=== PATIENT | female | born 1960 | race Caucasian/White ===

== ENCOUNTER 2024-08-19 15:17 | Inpatient (IN) | payer BC, MEDICARE, SELFPAY ==
[2024-08-19] VITALS (8 sets, daily range): BP systolic 104–135; BP diastolic 48–76; PULSE 82–113; RESP 15–23; TEMP 36.8–36.9; O2SAT 95–98; BMI 31.4; BMI 30.4
[2024-08-19 16:27] LABS: Absolute Lymphocyte Count 1.63 X10^3/uL (0.83-4.51); Absolute Neutrophil Count 7.9 X10^3/uL (2.0-7.7); Basophil# 0.07 X10^3/uL; Basophil% 0.6 % (0-1); Eosinophil# 0.37 X10^3/uL; Eosinophils% 3.4 % (0-5); Hematocrit 38.1 % (37-47); Hemoglobin 12.3 g/dL (12.0-15.0); Lymphocyte # 1.63 X10^3/ul (0.83-4.51); Lymphocyte % 14.9 % (19-41); Mean Corp Hgb Conc 32.3 g/dL (32-36); Mean Corpuscular Hgb 27.3 pg (27.0-32.0); Mean Corpuscular Volume 84.7 fL (81-99); Mean Platelet Vol. 8.6 fl (6.2-12.0); Monocyte# 0.81 X10^3/uL; Monocyte% 7.4 % (0-10); NRBC Flagged by Analyzer 0 % (0-5); Neutrophil # 7.91 X10^3/uL (2.7-7.7); Neutrophil % 72.2 % (47-70); Platelet Count 329 K/mm3 (150-450); RBC Distribution Width CV 12.9 % (11.6-14.6); RBC Distribution Width SD 39.8 fl (35.1-43.9)
--- NOTE | 2024-08-19 16:45 | CT_ITS ---
EXAM: CT ANGIOGRAPHY CHEST WITHOUT AND WITH INTRAVENOUS CONTRAST CLINICAL INDICATION: Pleuritic chest pain TECHNIQUE: Helically acquired angiography images were obtained of the chest without and with intravenous contrast. CTDIvol = ( 9.59 ) mGy, DLP = ( 329.57 ) mGycm This CT exam was performed using one or more of the following dose reduction techniques: automated exposure control, adjustment of the mA and/or kV according to patient size, and/or use of iterative reconstruction technique. MIP reconstructed images were created and reviewed. CONTRAST: IV 100mL Isovue-370 COMPARISON: No relevant prior studies available. FINDINGS: PULMONARY ARTERIES: Unremarkable. No evidence of pulmonary embolism. No aneurysm or dissection. No PE. AORTA: Unremarkable. Normal in caliber. No evidence of dissection. GREAT VESSELS OF AORTIC ARCH: Unremarkable. Normal in caliber. No evidence of dissection. LUNGS AND PLEURAL SPACES: Interstitial and groundglass opacities and prominent peripherally than centrally. No dense consolidation. No mass. No pleural effusion or pneumothorax. HEART: Unremarkable. Heart size is normal. No pericardial effusion. No significant coronary artery calcifications. MEDIASTINUM: Unremarkable. Esophagus is unremarkable. No hiatal hernia. No mediastinal or hilar adenopathy. THYROID: Unremarkable. No thyroid lesions. BONES/JOINTS: Degenerative changes of the spine. No suspicious lytic or blastic abnormality. CT/CTA Chest W/WO Contrast IMPRESSION: 1. Interstitial and groundglass opacities and prominent peripherally than centrally. Findings can be seen with an infectious and/or inflammatory process. 2. No PE, aortic dissection or consolidative pneumonia. Electronically Signed: William Sahu MD at 17:48 EST ,
--- NOTE | 2024-08-19 16:49 | EDS_ITS ---
HPI <ASHUTOSH Chavarria - Last Filed: 08/19/24 16:59> History of Present Illness Chief Complaint: Shortness of Breath Narrative Narrative: Patient is a 64-year-old female with history of epilepsy, anxiety, depression presents to the [facility] for a 1.5 months of worsening coughing, ongoing pneumonia. Patient has been on multiple antibiotics over the last 1.5 months. Patient has been on Omnicef, doxycycline, amoxicillin, Levaquin as well as a couple doses of prednisone. Patient had a CT scan on 14 August, it showed bilateral lower lobe and right middle lobe groundglass infiltrates. Patient was seen at [facility] and had a negative troponin, negative D-dimer. Patient did have a leukocytosis. She called her PCP today who told to go to the emergency department for IV antibiotics. [facility] <ASHUTOSH Chavarria - Last Filed: 08/19/24 16:59> [facility] Medical History (Updated 08/19/24 @ 19:[address] Audrey Colvin MD) Tonsillectomy planned Depression Epilepsy Home Medications ?Medication ?Instructions ?Recorded ?Last Taken ?Type budesonide-formoterol HFA 80 2 puff inhalation BID BREATHING 08/19/24 Unknown History mcg-4.5 mcg/actuation aerosol inhaler (Breyna) oxcarbazepine 600 mg 600 mg PO DAILY 08/19/24 Unknown History tablet,extended release 24 hr sertraline 100 mg tablet 150 mg PO DAILY 08/19/24 Unknown History trazodone 50 mg tablet 50 mg PO QHS 08/19/24 Unknown History Allergy/AdvReac Type Severity Reaction Status Date / Time oxaprozin (From Daypro) Allergy Severe Angioedema Verified 08/19/24 15:18 Sulfa (Sulfonamide Allergy Mild Rash Verified 08/19/24 15:18 Antibiotics) Surgical History (Updated 08/19/24 @ 16:13 by Aleks Maguire) History of carpal tunnel surgery H/O section Social History Smoking Status: Former smoker ROS <ASHUTOSH Chavarria - Last Filed: 08/19/24 16:59> ROS ED ROS Narrative Constitutional: Negative for weight loss. Positive fever, chills, weakness Eyes: Negative for vision loss, vision change, double vision ENT: Negative for any sore throat, ear pain, congestion Cardiovascular: Negative for any palpitations. Positive chest tightness Respiratory: Negative for any sputum production, hemoptysis, dyspnea, dyspnea on exertion, orthopnea. Positive for cough Gastrointestinal: Negative for any abdominal pain, nausea, vomiting, diarrhea, constipation, blood in stool, blood in vomit : Negative for any urinary frequency, dysuria, retention, blood in urine Muscle skeletal: Negative for any neck pain, back pain Neurological: Negative for any headache, syncope, dizziness Skin: Negative for any rashes, itching, abrasions, lacerations Psychiatric: Negative for any depression, anxiety, stress, suicidal ideation, homicidal ideation Hematologic: Negative for any excessive bruising, easy bleeding EXAM <ASHUTOSH Chavarria - Last Filed: 08/19/24 16:59> Physical Exam Narrative Exam Narrative: Vital signs reviewed. Patient appears to be in no obvious distress HEET: Head normocephalic atraumatic, TMs clear bilaterally. Posterior pharynx is clear, moist mucous membranes. Nares clear bilaterally. Neck: Supple with no lymphadenopathy or tenderness. No signs of meningismus. Cardiac: Regular rate and rhythm no murmurs gallops or rubs, equal peripheral pulses bilaterally. Respiratory: Crackles bilateral lower lungs. No chest tenderness. Abdomen: Soft, nontender, nondistended. No abdominal bruit or pulsatile masses. No hepatosplenomegaly Extremities: No peripheral edema, no signs of gross trauma or deformity. Active full range of motion of all extremities. Neuro: Cranial nerves II through XII intact, no focal neurological deficits. Skin: Clean dry and intact with no rash, purpura, petechiae, vesicles or pustules. Backs/flank: No CVA tenderness, no midline spinal tenderness, no deformity. Psych: Normal mood and affect. No SI, HI or acute psychosis. Const Vital Signs: 08/19/24 15:18 08/19/24 15:20 08/19/24 16:09 Temperature 98.3 F 98.3 F Temperature Source Oral Oral Pulse Rate 113 H 113 H Respiratory Rate 22 H 22 H Respiratory Effort Respiratory Depth Blood Pressure 135/76 H 135/76 H Blood Pressure Mean 95 95 Pulse Ox 96 96 Oxygen Delivery Method Room Air Room Air Room Air 08/19/24 16:12 08/19/24 16:38 08/19/24 17:17 Temperature 98.3 F Temperature Source Temporal Pulse Rate 91 98 Respiratory Rate 15 23 H Respiratory Effort Short of Breath Respiratory Depth Shallow Blood Pressure 115/68 108/65 Blood Pressure Mean 83 79 Pulse Ox 97 95 Oxygen Delivery Method Room Air 08/19/24 18:49 Temperature 98.3 F Temperature Source Pulse Rate 98 Respiratory Rate 23 H Respiratory Effort Respiratory Depth Blood Pressure 108/65 Blood Pressure Mean 79 Pulse Ox 95 Oxygen Delivery Method Positive well nourished and well developed General Appearance ED: well developed <Dr. Omero Villela DO - Last Filed: 08/19/24 20:49> Physical Exam Const Vital Signs: 08/19/24 15:18 08/19/24 15:20 08/19/24 16:09 Temperature 98.3 F 98.3 F Temperature Source Oral Oral Pulse Rate 113 H 113 H Respiratory Rate 22 H 22 H Respiratory Effort Respiratory Depth Blood Pressure 135/76 H 135/76 H Blood Pressure Mean 95 95 Pulse Ox 96 96 Oxygen Delivery Method Room Air Room Air Room Air 08/19/24 16:12 08/19/24 16:38 08/19/24 17:17 Temperature 98.3 F Temperature Source Temporal Pulse Rate 91 98 Respiratory Rate 15 23 H Respiratory Effort Short of Breath Respiratory Depth Shallow Blood Pressure 115/68 108/65 Blood Pressure Mean 83 79 Pulse Ox 97 95 Oxygen Delivery Method Room Air 08/19/24 18:49 Temperature 98.3 F Temperature Source Pulse Rate 98 Respiratory Rate 23 H Respiratory Effort Respiratory Depth Blood Pressure 108/65 Blood Pressure Mean 79 Pulse Ox 95 Oxygen Delivery Method MDM <ASHUTOSH Chavarria - Last Filed: 08/19/24 16:59> [facility] Lab Data Labs: Laboratory Results - last 24 hr 08/19/24 16:03 WBC 11.0 RBC 4.50 Hgb 12.3 Hct 38.1 MCV 84.7 MCH 27.3 MCHC 32.3 RDW Std Deviation 39.8 RDW Coeff of Leann 12.9 Plt Count 329 MPV 8.6 Immature Gran % (Auto) 1.500 H Neut % (Auto) 72.2 H Lymph % (Auto) 14.9 L [place] % (Auto) 7.4 Eos % (Auto) 3.4 Baso % (Auto) 0.6 Absolute Neuts (auto) 7.9 H Absolute Lymphs (auto) 1.63 Nucleated RBC % 0 Sodium 134 L Potassium 3.9 Chloride 103 Carbon Dioxide 27.0 Anion Gap 4 L BUN 12 Creatinine 0.68 Estim Creat Clear Calc 67.76 Est GFR (MDRD) Af Amer 112 Est GFR (MDRD) Non-Af 92 BUN/Creatinine Ratio 17.7 Glucose 104 Calcium 9.8 Troponin I High Sens < 3 L Radiography Diagnostic Testing: Clinical Impression(s) from Imaging Studies Chest CTA 08/19/24 16:45 IMPRESSION: 1. Interstitial and groundglass opacities and prominent peripherally than centrally. Findings can be seen with an infectious and/or inflammatory process. 2. No PE, aortic dissection or consolidative pneumonia. Electronically Signed: William Sahu MD at 17:48 EST , Treatment and Re-Evaluation :: Differential diagnosis includes however is not limited to: Community-acquired pneumonia, lung cancer, COVID-19, influenza, other virus, PE, pulmonary effusion Patient appears generally well, vital signs are stable, patient is nontoxic- appearing. Presenting to the emergency department with complaints of ongoing cough, known bilateral pneumonia. Patient is been on multiple antibiotics, and is not improving. Patient had a negative D-dimer, CT scan of chest. Patient at this time will receive a CTA of the chest, as well as a full respiratory panel. Blood cultures x 2 will be ordered. Patient will likely be admitted to the hospital. Patient will receive IV vancomycin, IV Zosyn. All radiologic examinations were read, reviewed by the emergency department attending. From these reads, a plan of care will be put in place. <Dr. Omero Villela, DO - Last Filed: 08/19/24 20:49> [facility] Lab Data Labs: Laboratory Results - last 24 hr 08/19/24 16:03 WBC 11.0 RBC 4.50 Hgb 12.3 Hct 38.1 MCV 84.7 MCH 27.3 MCHC 32.3 RDW Std Deviation 39.8 RDW Coeff of Leann 12.9 Plt Count 329 MPV 8.6 Immature Gran % (Auto) 1.500 H Neut % (Auto) 72.2 H Lymph % (Auto) 14.9 L [place] % (Auto) 7.4 Eos % (Auto) 3.4 Baso % (Auto) 0.6 Absolute Neuts (auto) 7.9 H Absolute Lymphs (auto) 1.63 Nucleated RBC % 0 Sodium 134 L Potassium 3.9 Chloride 103 Carbon Dioxide 27.0 Anion Gap 4 L BUN 12 Creatinine 0.68 Estim Creat Clear Calc 67.76 Est GFR (MDRD) Af Amer 112 Est GFR (MDRD) Non-Af 92 BUN/Creatinine Ratio 17.7 Glucose 104 Calcium 9.8 Troponin I High Sens < 3 L Radiography Diagnostic Testing: Clinical Impression(s) from Imaging Studies Chest CTA 08/19/24 16:45 IMPRESSION: 1. Interstitial and groundglass opacities and prominent peripherally than centrally. Findings can be seen with an infectious and/or inflammatory process. 2. No PE, aortic dissection or consolidative pneumonia. Electronically Signed: William Sahu MD at 17:48 EST Reading Location ID and State: [address] [place] [address] Tel , Service support , Treatment and Re-Evaluation :: Differential diagnosis includes however is not limited to: Community-acquired pneumonia, lung cancer, COVID-19, influenza, other virus, PE, pulmonary effusion Patient appears generally well, vital signs are stable, patient is nontoxic- appearing. Presenting to the emergency department with complaints of ongoing cough, known bilateral pneumonia. Patient is been on multiple antibiotics, and is not improving. Patient had a negative D-dimer, CT scan of chest. Patient at this time will receive a CTA of the chest, as well as a full respiratory panel. Blood cultures x 2 will be ordered. Patient will likely be admitted to the hospital. Patient will receive IV vancomycin, IV Zosyn. All radiologic examinations were read, reviewed by the emergency department attending. From these reads, a plan of care will be put in place. ED attending note: I evaluated the patient in conjunction with the [facility]. I agree with his/her statements and above findings. I have personally performed a face to face assessment of the patient and have reviewed the [facility] Note. I performed a substantive portion of the visit including all aspects of the following. I personally saw the patient performed chart review, physical exam, reviewed labs, imaging (if obtained), and formulated a treatment and management plan. This note was generated with Dragon dictation software. It may contain incorrect words, spelling, and punctuation that were not noted in review of the chart prior to signing. Discharge Plan Disposition Disposition: Acute Care Hospital [facility] Discharge Date/Time: 08/19/24 19:35
[2024-08-19 16:53] LABS: Anion Gap 4 (5-15); BUN 12 mg/dL (7-18); BUN/Creat Ratio 17.7 RATIO (10-20); Calcium,Total 9.8 mg/dL (8.5-10.1); Chloride 103 mmol/L (98-107); Creatinine, Serum 0.68 mg/dL (0.55-1.02); EST Glomerular Filtration Rate 92 mL/min (>60); Est Glom Filt Rate - Afr Amer 112 mL/min (>60); Estimated Creatinine Clearance 67.76 ml/min; Glucose 104 mg/dL (74-106); Potassium 3.9 mmol/L (3.5-5.1); Sodium Level 134 mmol/L (136-145); Troponin-I HS < 3 pg/mL (3.0-54.0)
[2024-08-19] MEDS: Piperacil/Tazobactam 3.375 GM in 0.9% Normal Saline (50mL MB+) 50 ML IV (17:03)
[2024-08-19] MEDS: Vancomycin HCl 1,250 MG in 0.9% Normal Saline (250mL Bag) 250 ML 167 MG IV (17:21)
--- NOTE | 2024-08-19 18:56 | PCM.HP.STD ---
HPI - General General Date of Admission: 08/19/24 Date of Service: 08/19/24 Chief Complaint: SOB HPI Narrative KIANA REEVES, is a 64-year-old female history of epilepsy and anxiety presented [facility] ED 08/19/2024 with a month and a half of worsening cough with shortness of breath and multiple rounds of antibiotics for pneumonia. She has been on Omnicef, Doxy, amoxicillin, Levaquin and has also received prednisone with no improvement. Patient had CT scan August 14 and it showed bilateral lower lobe and right middle lobe groundglass infiltrates. She was seen at [facility] with negative troponin and negative D-dimer and discharged. She called her PCP today who told her to go to the emergency department for IV antibiotics. In the ED patient vitally stable with white blood cell count within normal limits at 11 and slight left shift, CBC and BMP otherwise fairly noncontributory. Patient had CTA which showed no PE but redemonstrated interstitial and groundglass opacities more prominent peripherally than centrally. Patient given vancomycin and Zosyn and hospitalist contacted to admit patient for IV antibiotics for refractory pneumonia. Patient evaluated with family member at bedside. Patient reports about a month and a half ago she did start with a cough with thick yellow sputum and shortness of breath, cough resolved after 4 days and the shortness of breath continued to worsen and has since plateaued but has not proved at all. She is also had some aching left-sided chest pain that comes and goes and has also been present for a month and a half. She has been on Omnicef, Doxy, Augmentin, Levaquin and prednisone and reports she has had no improvement with any of these courses of antibiotics or steroids whatsoever and albuterol has not been helpful either. Her max temperature has been 100.1 during this past month and a half. Just this past day she has been coughing a little bit again with a little bit of a stuffy nose and headache but between the original 4 days and now she has had no significant productive cough. Patient denies any new medications or [id number] medicines or supplements and quit smoking last summer and denies smoking any marijuana or anything similar. Additionally patient reports that when she gets up and moves around she has significant shortness of breath that limits her daily activities and also gets tachycardic, sometimes will get tachycardic even at night as noted by the monitor that she wears, usually low 100s sometimes up to 130 or so. [facility] Medical History (Updated 08/19/24 @ 19:[address] Audrey Colvin MD) Depression Epilepsy Tonsillectomy planned Home Medications ?Medication ?Instructions ?Recorded ?Last Taken ?Type albuterol sulfate 2.5 mg/3 mL 1 08/19/24 Unknown History (0.083 %) solution for nebulization budesonide-formoterol HFA 80 2 puff inhalation Q12.TCU 08/19/24 Unknown History mcg-4.5 mcg/actuation aerosol inhaler (Breyna) oxcarbazepine 600 mg 600 mg PO DAILY 08/19/24 Unknown History tablet,extended release 24 hr sertraline 100 mg tablet 150 mg PO DAILY 08/19/24 Unknown History trazodone 50 mg tablet 50 mg PO QHS 08/19/24 Unknown History Allergy/AdvReac Type Severity Reaction Status Date / Time oxaprozin (From Daypro) Allergy Severe Angioedema Verified 08/19/24 15:18 Sulfa (Sulfonamide Allergy Mild Rash Verified 08/19/24 15:18 Antibiotics) Surgical History (Updated 08/19/24 @ 16:13 by Aleks Maguire) H/O section History of carpal tunnel surgery Social History Smoking Status: Former smoker ROS ROS Narrative General: Max temperature 100.1 but no overt fevers HENT: Little bit of a stuffy nose that just started, intermittently will get some headaches EYES: Denies changes in vision Resp: Has slight cough again now and continues to have the significant shortness of breath Cardiac: Has left-sided chest aching that comes and goes GI: Feels little bit bloated and gassy, denies changes in bowel, denies nausea/vomiting : Denies changes in urination Extremity: Denies swelling MSK: Denies weakness Neuro: Denies any numbness/tingling Heme: Denies any bleeding or bruising Skin: Denies rashes Psychiatric: No complaints voiced Vital Signs Vital Signs Vital Signs: 08/19/24 15:18 08/19/24 15:20 08/19/24 16:09 Temperature 98.3 F 98.3 F Temperature Source Oral Oral Pulse Rate 113 H 113 H Respiratory Rate 22 H 22 H Respiratory Effort Respiratory Depth Blood Pressure 135/76 H 135/76 H Blood Pressure Mean 95 95 Pulse Ox 96 96 Oxygen Delivery Method Room Air Room Air Room Air 08/19/24 16:12 08/19/24 16:38 08/19/24 17:17 Temperature 98.3 F Temperature Source Temporal Pulse Rate 91 98 Respiratory Rate 15 23 H Respiratory Effort Short of Breath Respiratory Depth Shallow Blood Pressure 115/68 108/65 Blood Pressure Mean 83 79 Pulse Ox 97 95 Oxygen Delivery Method Room Air 08/19/24 18:49 Temperature 98.3 F Temperature Source Pulse Rate 98 Respiratory Rate 23 H Respiratory Effort Respiratory Depth Blood Pressure 108/65 Blood Pressure Mean 79 Pulse Ox 95 Oxygen Delivery Method Weight Weight: 77.9 kg Body Mass Index (BMI) 31.4 Physical Exam Narrative General: Alert, oriented, no apparent distress HEENT: Atraumatic, normocephalic Eyes: Anicteric, normal conjunctiva, extraocular movements grossly intact Neck: Supple Respiratory: Normal respiratory effort while at rest, does have fine crackles diffusely Cardiovascular: Regular rate and rhythm GI: Soft, nontender, nondistended Extremities: No edema Musculoskeletal: Moving all extremities Neuro: No overt focal neurological deficits Skin: No rashes appreciated Psych: Cooperative Results Lab / Micro Data 08/19/24 16:03 08/19/24 16:03 Labs: Laboratory Results - last 24 hr 08/19/24 16:03: WBC 11.0, RBC 4.50, Hgb 12.3, Hct 38.1, MCV 84.7, MCH 27.3, MCHC 32.3, RDW Std Deviation 39.8, RDW Coeff of Leann 12.9, Plt Count 329, MPV 8.6, Immature Gran % (Auto) 1.500 H, Neut % (Auto) 72.2 H, Lymph % (Auto) 14.9 L, Fisher % (Auto) 7.4, Eos % (Auto) 3.4, Baso % (Auto) 0.6, Absolute Neuts (auto) 7.9 H, Absolute Lymphs (auto) 1.63, Nucleated RBC % 0, Sodium 134 L, Potassium 3.9, Chloride 103, Carbon Dioxide 27.0, Anion Gap 4 L, BUN 12, Creatinine 0.68, Estim Creat Clear Calc 67.76, Est GFR (MDRD) Af Amer 112, Est GFR (MDRD) Non-Af 92, BUN/Creatinine Ratio 17.7, Glucose 104, Calcium 9.8, Troponin I High Sens < 3 L Imaging Radiology Impression Chest CTA 08/19/24 16:45 IMPRESSION: 1. Interstitial and groundglass opacities and prominent peripherally than centrally. Findings can be seen with an infectious and/or inflammatory process. 2. No PE, aortic dissection or consolidative pneumonia. Electronically Signed: William Sahu MD at 17:48 EST , Assessment & Plan Assessment/Plan (1) Shortness of breath: PLAN: Plan # Shortness of breath and bilateral peripheral groundglass opacities -Patient CT negative for PE but demonstrated interstitial and groundglass opacities more prominent peripherally than centrally and query an infectious or inflammatory -Patient has not improved with any oral antibiotic course she has tried thus far and she has had multiple antibiotic trials or oral prednisone taper -Unclear if patient failing oral antibiotics and needs IV or if this is noninfectious -Respiratory panel pending -Order sputum culture in the event patient able to produce sputum -Will check Pro-Baljeet, ESR, CRP -Consult tele pulmonology -DuoNebs and as needed albuterol -Urine antigens -Mucinex, I/S -Will cover with Rocephin and azithromycin, do not think patient has risk factors for Pseudomonas or MRSA and given she is afebrile, not hypoxic and has no elevated white blood cell count at this time do not think she needs that additional coverage but can be escalated or de-escalated pending labs/progress/clinical judgment moving forward -If pt still here Thursday may benefit from ID consult if cause still unclear #Seizure disorder -Presently maintained on Trileptal -Continue home regimen #Depression/anxiety -Continue home medications #DVT ppx: Lovenox subcu Audrey Colvin MD Time spent in the patient's overall evaluation, decision-making process, review of diagnostic data, adjustment of management, discussion with other providers, nursing and ancillary staff involved in patient's care documentation, 63 Minutes Charges/Coding Visit Charges Inpatient E&M: 13951 Init Hosp L2
[2024-08-19 20:09] LABS: Erythrocyte Sedimentation Rate 46 mm/hr (0-30)
[2024-08-19] MEDS: Ipratropium/Albuterol Sulfate 3 ML AMPUL.NEB INHALATION (20:37)
[2024-08-19 21:00] LABS: Procalcitonin 0.08 ng/mL (0.00-0.09)
[2024-08-19] MEDS: Ceftriaxone 2 GM in 0.9% Normal Saline (50mL MB+) 50 ML IV (21:05)
[2024-08-19] MEDS: guaiFENesin 1,200 MG Tablet 1200 MG PO (21:46)
[2024-08-19] MEDS: Azithromycin 500 MG in 0.9% Normal Saline (250mL Bag) 250 ML 255 MG IV (21:46)
[2024-08-19] MEDS: Sertraline 50 MG Tablet 150 MG PO (21:46)
[2024-08-19] MEDS: traZODone 50 MG Tablet PO (21:47)
--- NOTE | 2024-08-19 23:55 | PCM.HOSP.N ---
Hospitalist Note Procalcitonin returned normal. COVID +. Unfortunately patient with likely potential long-haul COVID symptoms. Will d/c abx therapies. CTPA without PEs.
[2024-08-20] VITALS (12 sets, daily range): BP systolic 97–118; BP diastolic 44–60; PULSE 81–119; RESP 14–24; TEMP 36.8–37.7; O2SAT 87–97
[2024-08-20] MEDS: Acetaminophen 325 MG Tablet 650 MG PO ×3 (06:27→20:40)
[2024-08-20 07:15] LABS: Basophil# 0.05 X10^3/uL; Basophil% 0.6 % (0-1); Eosinophil# 0.44 X10^3/uL; Eosinophils% 4.9 % (0-5); Hematocrit 33.8 % (37-47); Hemoglobin 11.1 g/dL (12.0-15.0); Lymphocyte % 16.9 % (19-41); Mean Corp Hgb Conc 32.8 g/dL (32-36); Mean Corpuscular Hgb 27.6 pg (27.0-32.0); Mean Corpuscular Volume 84.1 fL (81-99); Mean Platelet Vol. 8.5 fl (6.2-12.0); Monocyte# 0.84 X10^3/uL; Monocyte% 9.4 % (0-10); NRBC Flagged by Analyzer 0 % (0-5); Neutrophil # 5.95 X10^3/uL (2.7-7.7); Neutrophil % 66.9 % (47-70); Platelet Count 289 K/mm3 (150-450); RBC Distribution Width CV 12.9 % (11.6-14.6); RBC Distribution Width SD 39.6 fl (35.1-43.9); Red Blood Count 4.02 M/mm3 (4.2-5.4); White Blood Count 8.9 K/mm3 (4.4-11.0)
[2024-08-20] MEDS: Ipratropium/Albuterol Sulfate 3 ML AMPUL.NEB INHALATION ×3 (07:38→19:32)
[2024-08-20] MEDS: Enoxaparin 40 MG/0.4 ML Syringe SC (09:04)
[2024-08-20] MEDS: guaiFENesin 1,200 MG Tablet 1200 MG PO ×2 (09:04→20:40)
[2024-08-20 09:48] LABS: Anion Gap 5 (5-15); BUN 9 mg/dL (7-18); Calcium,Total 9.2 mg/dL (8.5-10.1); Chloride 108 mmol/L (98-107); Creatinine, Serum 0.64 mg/dL (0.55-1.02); EST Glomerular Filtration Rate 98 mL/min (>60); Est Glom Filt Rate - Afr Amer 119 mL/min (>60); Estimated Creatinine Clearance 66.69 ml/min; Glucose 91 mg/dL (74-106); Sodium Level 138 mmol/L (136-145)
--- NOTE | 2024-08-20 12:56 | PN_ITS ---
Subjective Subjective Patient seen and examined. She complains of feeling short of breath though she is on room air. She is coughing but it is a dry cough. She denies any chest pain, palpitations, dizziness, nausea vomiting or any other symptoms. Review of systems otherwise negative. She did test positive for COVID. Objective Data Objective Data Vital Signs: Vital Signs Temp Pulse Resp BP Pulse Ox O2 Del Method 98.2 F 97 18 99/44 L 95 Room Air 08/20/24 09:00 08/20/24 09:00 08/20/24 09:00 08/20/24 09:00 08/20/24 09:00 08/20/24 09:05 Oxygen Delivery Method Room Air Weight: 166 lb 7.184 oz Body Mass Index (BMI) 30.4 Intake & Output: Intake and Output for Last 24 Hours 08/18/24 08/19/24 08/20/24 23:59 23:59 23:59 Intake Total 630 / 630 Balance 630 / 630 Lab / Micro Data 08/20/24 07:05 08/20/24 07:05 Labs: Laboratory Results - last 24 hr 08/19/24 16:03: WBC 11.0, RBC 4.50, Hgb 12.3, Hct 38.1, MCV 84.7, MCH 27.3, MCHC 32.3, RDW Std Deviation 39.8, RDW Coeff of Leann 12.9, Plt Count 329, MPV 8.6, I mmature Gran % (Auto) 1.500 H, Neut % (Auto) 72.2 H, Lymph % (Auto) 14.9 L, [place] % (Auto) 7.4, Eos % (Auto) 3.4, Baso % (Auto) 0.6, Absolute Neuts (auto) 7.9 H, Absolute Lymphs (auto) 1.63, Nucleated RBC % 0, Sodium 134 L, Potassium 3.9, Chloride 103, Carbon Dioxide 27.0, Anion Gap 4 L, BUN 12, Creatinine 0.68, Estim Creat Clear Calc 67.76, Est GFR (MDRD) Af Amer 112, Est GFR (MDRD) Non-Af 92, BUN/Creatinine Ratio 17.7, Glucose 104, Calcium 9.8, Troponin I High Sens < 3 L 08/19/24 19:33: ESR 46 H 08/19/24 20:24: C-React Prot Ext Range 65.10 H, Procalcitonin 0.08 08/20/24 07:05: WBC 8.9, RBC 4.02 L, Hgb 11.1 L, Hct 33.8 L, MCV 84.1, MCH 27.6, MCHC 32.8, RDW Std Deviation 39.6, RDW Coeff of Leann 12.9, Plt Count 289, MPV 8.5, Immature Gran % (Auto) 1.300 H, Neut % (Auto) 66.9, Lymph % (Auto) 16.9 L, [place] % (Auto) 9.4, Eos % (Auto) 4.9, Baso % (Auto) 0.6, Absolute Neuts (auto) 6.0, Absolute Lymphs (auto) 1.50, Nucleated RBC % 0, Sodium 138, Potassium 4.0, Chloride 108 H, Carbon Dioxide 24.0, Anion Gap 5, BUN 9, Creatinine 0.64, Estim Creat Clear Calc 66.69, Est GFR (MDRD) Af Amer 119, Est GFR (MDRD) Non-Af 98, BUN/Creatinine Ratio 14.0, Glucose 91, Calcium 9.2, TSH 1.540 Micro: Microbiology 08/19/24 20:30 Mucosa - Nasopharyngeal Coronavirus COVID-19 PCR - Final SARS-CoV-2 (COVID 19 PCR) 08/19/24 20:48 Urine, Random Legionella Antigen - Final 08/19/24 20:48 Urine, Random Streptococcus pneumoniae Antigen (M - Final 08/19/24 15:34 Mucosa - Nose Respiratory Panel (PCR) - Final Radiography Diagnostic Testing: Radiology Impression Chest CTA 08/19/24 16:45 IMPRESSION: 1. Interstitial and groundglass opacities and prominent peripherally than centrally. Findings can be seen with an infectious and/or inflammatory process. 2. No PE, aortic dissection or consolidative pneumonia. Electronically Signed: William Sahu MD at 17:48 EST , Physical Exam Const alert, oriented x3, no apparent distress and well nourished General Appearance: cooperative and well developed HEENT normocephalic, head/scalp atraumatic, moist oral mucous membranes, oropharynx normal and gingiva normal Eyes PERRL and EOMs intact bilaterally Neck no lymphadenopathy and supple Lymph Lymphatic: no lymphadenopathy noted and no lymphedema noted Resp Resp Narrative: mildly diminished breath sounds bilaterally, mild crackles bilaterally, no wheezing. On room air. Cardio regular rate, regular rhythm, S1 normal heart sound, S2 normal heart sound and no murmurs GI normal to inspection, nondistended, normoactive bowel sounds, soft to palpation, non-tender and non-distended Extremity normal capillary refill, no clubbing, cyanosis or edema and no calf tenderness General Extremity: no tenderness to palpation of joints or extremities Skin General Skin Exam: no breakdown Neuro CN's II-XII intact bilaterally, no focal motor deficits and no sensory deficits noted Motor Exam: strength 5/5 throughout and general weakness Psych thought process normal and cooperative Appearance: appropriate Assessment & Plan Assessment/Plan (1) Shortness of breath: (2) COVID: PLAN: Plan #COVID 19 infection * Patient admitted with a complaint of shortness of breath. * She has been treated with pneumonia since around [place] and says she has had multiple oral antibiotics including Levaquin, Omnicef, doxycycline and amoxicillin and also received prednisone but has not improved. * She went back on account of shortness of breath. CTA of the chest showed no evidence of PE but showed interstitial and groundglass opacities more prominent peripherally and centrally. * When she came in she also tested positive for COVID. She says when her symptoms started June she was tested for COVID but was negative. * Pulmonology consulted. She was started on IV ceftriaxone and azithromycin. Antibiotics were discontinued after the COVID test came back positive. * Await pulmonology review. WBC not elevated. * #Seizure disorder: on trileptal #Depression and anxiety: on sertraline and oxcarbazepine. DVT prophylaxis; lovenox Charges/Coding Visit Charges Inpatient E&M: 63171 Subs Hosp L2
--- NOTE | 2024-08-20 14:32 | CASEMGMT ---
RN RENNY PLANT SUPERVISOR RENNY?spoke w/pt for initial transition planning/care coordination assessment. RN RENNY?introduced self and role at [facility]. Pt voices understanding and consents to assessment?at this time. Pt is A/O at this time and answers all questions appropriately. Care providers, pharmacy, and demographics verified/updated at this time. PCP: DENNY Torres Specialists: DENNY Plascencia w/[facility]. Pt sees her @ [facility]. [facility]erred Pharmacy: [facility] Insurance: JUAN MIGUEL [employer]kins Prescription Benefit: yes LNOK: , Justice. Dtr, Morenita. Son Living Arrangements: Lives w/. Independent. Works full-time. Transportation:?Pt states drives self and states no transportation concerns at this time. also drives. DME: States has the following DME: nebulizer and pulse ox. No home O2. Pt has no preference of DME co, made aware [facility] is affiliated w/[facility], and states okay with [facility]. HHC/SNF: No hx of either. Has done OP therapy for her hand. No needs identified. Pt wishes to return home and states has no concerns with going home at time of discharge. PLAN: Home. Follow for any home O2 needs. Gaurang VELA RN, CM
--- NOTE | 2024-08-20 14:46 | PCMCONS.TICU ---
HPI Consult Data Date of Consult: 08/20/24 HPI Narrative HPI Narrative: KIANA REEVES, is a 64 F has a history of seizure disorder and depression who presents to the hospital on with a 6 week history of worsening cough with shortness of breath and multiple rounds of antibiotics for pneumonia. She has been on Omnicef, Doxy, amoxicillin, Levaquin and has also received prednisone with no improvement. Patient had CT scan August 14 and it showed bilateral lower lobe and right middle lobe groundglass infiltrates. Patient had CTA which showed no PE but redemonstrated interstitial and groundglass opacities more prominent peripherally than centrally. Patient reports that she has had different exposure which may have caused her issues. 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 She states she does not wear a mask. 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 She states she uses lysol . chlorox whips and toliet bowel wool cleaner [facility] Medical History (Updated 08/20/24 @ 13:[address] Taylor Atkins MD) Tonsillectomy planned Depression Epilepsy Home Medications ?Medication ?Instructions ?Recorded ?Last Taken ?Type budesonide-formoterol HFA 80 2 puff inhalation BID BREATHING 08/19/24 Unknown History mcg-4.5 mcg/actuation aerosol inhaler (Breyna) oxcarbazepine 600 mg 600 mg PO 1800 EPILEPSY 08/19/24 Unknown History tablet,extended release 24 hr sertraline 100 mg tablet 150 mg PO QHS DEPRESSION 08/19/24 Unknown History trazodone 50 mg tablet 50 mg PO QHS 08/19/24 Unknown History Allergy/AdvReac Type Severity Reaction Status Date / Time oxaprozin (From Daypro) Allergy Severe Angioedema Verified 08/19/24 15:18 Sulfa (Sulfonamide Allergy Mild Rash Verified 08/19/24 15:18 Antibiotics) Surgical History (Updated 08/19/24 @ 16:13 by Aleks Maguire) History of carpal tunnel surgery H/O section Social History Smoking Status: Former smoker ROS Constitutional Constitutional: Reports systems reviewed and no addt'l complaints, except as documented Objective Data Objective Data Vital Signs: Vital Signs Last response Temperature 36.8 C 08/20/24 14:42 Temperature Source Oral 08/20/24 14:42 Pulse Rate 96 08/20/24 14:42 Respiratory Rate 20 H 08/20/24 14:42 Respiratory Effort Non-Labored 08/20/24 09:05 Respiratory Depth Shallow 08/19/24 16:12 Respiratory Pattern Normal 08/20/24 13:46 Blood Pressure 118/45 L 08/20/24 14:42 Blood Pressure Mean 69 08/20/24 14:42 Blood Pressure Source Monitor 08/20/24 14:42 Blood Pressure Position Semi-Fowlers 08/20/24 14:42 Blood Pressure Location Left Arm 08/20/24 14:42 Pulse Ox 96 08/20/24 14:42 Oxygen Delivery Method Room Air 08/20/24 14:42 I&O: I&O Last 24 Hours 08/19/24 08/20/24 08/20/24 23:59 11:59 23:59 Intake Total 630 / 630 Balance 630 / 630 I&O: Total Stay 08/19/24 15:17 thru 08/19/24 22:50 Intake Total 630 Balance 630 Current Meds Ordered / Administered: Current meds ordered / Administered Generic Name Dose Route Start Last Admin Trade Name Freq PRN Reason Stop Dose Admin Acetaminophen 650 mg 08/19/24 19:45 08/20/24 12:35 Acetaminophen 325 Mg Tablet PO 650 mg Q6H PRN PRN Administration Pain 1-10 Or Fever >100.7 Albuterol Sulfate 2.5 mg 08/19/24 19:45 Albuterol 2.5 Mg/3 Ml Vial.Neb. INHALATION Q2H PRN PRN SOB &/OR WHEEZING Albuterol/Ipratropium 3 ml 08/19/24 19:45 08/20/24 13:25 Ipratropium/Albuterol Sulfate 3 Ml Ampul.Neb INHALATION 3 ml Q6HWA.RT CRIS Administration Enoxaparin Sodium 40 mg 08/20/24 10:00 08/20/24 09:04 Enoxaparin 40 Mg/0.4 Ml Syringe SC 40 mg DAILY CRIS Administration Guaifenesin 1,200 mg 08/19/24 22:00 08/20/24 09:04 Guaifenesin 1,200 Mg Tablet PO 1,200 mg BID CRIS Administration Sodium Chloride 100 mls @ 15 mls/hr 08/19/24 20:01 IV .Q6H40M PRN Saline Flush Influenza Virus Vaccine 180 mcg 08/21/24 10:00 Flu Vaccine High Dose Tv 180 Mcg/0.5 Ml Syringe IM 08/21/24 10:01 .ONCE ONE Melatonin 3 mg 08/19/24 19:45 Melatonin 3 Mg Tablet PO QHS PRN PRN INSOMNIA Ondansetron HCl 4 mg 08/19/24 19:45 Ondansetron 4 Mg/2 Ml Vial IV Q8H PRN PRN NAUSEA/VOMITING Oxcarbazepine 600 mg 08/20/24 18:00 Oxcarbazepine 600 Mg Tab.Er.24h PO 1800 CRIS Oxycodone HCl 2.5 mg 08/19/24 19:45 Oxycodone 5 Mg Tablet PO Q4H PRN PRN Pain Score 4-10 Senna/Docusate Sodium 2 tablet 08/19/24 19:45 Senna/Docusate Sodium 1 Tablet PO BID PRN PRN Constipation Sertraline HCl 150 mg 08/19/24 22:00 08/19/24 21:46 Sertraline 50 Mg Tablet PO 150 mg QHS CRIS Administration Sodium Chloride 10 - 40 ml 08/19/24 20:01 0.9% Saline Lock 10 Ml Syringe IV UD PRN SALINE FLUSH Trazodone HCl 50 mg 08/19/24 22:00 08/19/24 21:47 Trazodone 50 Mg Tablet PO 50 mg QHS CRIS Administration Physical Exam Const alert and oriented x3 General Appearance: cooperative and comfortable Orientation / Consciousness: awake and oriented to person Exam Limitations: no limitations HEENT normocephalic and head/scalp atraumatic Head and Scalp: normal to inspection and normocephalic Face and Sinus: normal facial exam and sinuses nontender Nose: external nose normal and nares normal Tympanic Membrane: TM's normal bilaterally and TM normal on the right Mouth: oral and palatal mucosa normal and lips normal Teeth and Gingiva: abnormal tooth and associated gingiva Eyes Pupil: PERRL Neck full ROM Chest inspection of chest normal Resp Auscultation: diminished lung sounds Cardio regular rate and regular rhythm Heart Sounds: S1 normal and S2 normal Neuro oriented x3, CN's II-XII intact bilaterally and moves all extremities Lab / Micro Data 08/20/24 07:05 08/20/24 07:05 Labs: Laboratory Results - last 24 hr 08/19/24 16:03: WBC 11.0, RBC 4.50, Hgb 12.3, Hct 38.1, MCV 84.7, MCH 27.3, MCHC 32.3, RDW Std Deviation 39.8, RDW Coeff of Leann 12.9, Plt Count 329, MPV 8.6, Immature Gran % (Auto) 1.500 H, Neut % (Auto) 72.2 H, Lymph % (Auto) 14.9 L, [place] % (Auto) 7.4, Eos % (Auto) 3.4, Baso % (Auto) 0.6, Absolute Neuts (auto) 7.9 H, Absolute Lymphs (auto) 1.63, Nucleated RBC % 0, Sodium 134 L, Potassium 3.9, Chloride 103, Carbon Dioxide 27.0, Anion Gap 4 L, BUN 12, Creatinine 0.68, Estim Creat Clear Calc 67.76, Est GFR (MDRD) Af Amer 112, Est GFR (MDRD) Non-Af 92, BUN/Creatinine Ratio 17.7, Glucose 104, Calcium 9.8, Troponin I High Sens < 3 L 08/19/24 19:33: ESR 46 H 08/19/24 20:24: C-React Prot Ext Range 65.10 H, Procalcitonin 0.08 08/20/24 07:05: WBC 8.9, RBC 4.02 L, Hgb 11.1 L, Hct 33.8 L, MCV 84.1, MCH 27.6, MCHC 32.8, RDW Std Deviation 39.6, RDW Coeff of Leann 12.9, Plt Count 289, MPV 8.5, Immature Gran % (Auto) 1.300 H, Neut % (Auto) 66.9, Lymph % (Auto) 16.9 L, [place] % (Auto) 9.4, Eos % (Auto) 4.9, Baso % (Auto) 0.6, Absolute Neuts (auto) 6.0, Absolute Lymphs (auto) 1.50, Nucleated RBC % 0, Sodium 138, Potassium 4.0, Chloride 108 H, Carbon Dioxide 24.0, Anion Gap 5, BUN 9, Creatinine 0.64, Estim Creat Clear Calc 66.69, Est GFR (MDRD) Af Amer 119, Est GFR (MDRD) Non-Af 98, BUN/Creatinine Ratio 14.0, Glucose 91, Calcium 9.2, TSH 1.540 Micro: Microbiology 08/19/24 20:30 Mucosa - Nasopharyngeal Coronavirus COVID-19 PCR - Final SARS-CoV-2 (COVID 19 PCR) 08/19/24 20:48 Urine, Random Legionella Antigen - Final 08/19/24 20:48 Urine, Random Streptococcus pneumoniae Antigen (M - Final 08/19/24 15:34 Mucosa - Nose Respiratory Panel (PCR) - Final Imaging Radiology Impression Chest CTA 08/19/24 16:45 IMPRESSION: 1. Interstitial and groundglass opacities and prominent peripherally than centrally. Findings can be seen with an infectious and/or inflammatory process. 2. No PE, aortic dissection or consolidative pneumonia. Electronically Signed: William Sahu MD at 17:48 EST , Assessment and Plan . Assessment and plan: ACute on chronic hypersensitivity pneumonitis - hammadn has occupational exposure to dust/mold that improves when she is away from work - patient will need have exposure avoidance - will need extended prednisone and ICS - patient needs 6 minute walk with pulse ox to see if she desaturates Critical Care Time: 50 The entirety of this encounter was done via Telemedicine
[2024-08-20] MEDS: OXCARBAZEPINE 600 MG PO (16:53)
[2024-08-20] MEDS: 0.9% Saline Lock 10 ML Syringe IV (20:38)
[2024-08-20] MEDS: traZODone 50 MG Tablet PO (20:41)
[2024-08-20] MEDS: Sertraline 50 MG Tablet 150 MG PO (20:42)
[2024-08-21] VITALS (8 sets, daily range): BP systolic 99–127; BP diastolic 50–60; PULSE 82–98; RESP 18–20; TEMP 36.4–36.7; O2SAT 92–97
[2024-08-21] MEDS: Acetaminophen 325 MG Tablet 650 MG PO ×2 (04:55→20:31)
[2024-08-21 06:49] LABS: Absolute Lymphocyte Count 1.54 X10^3/uL (0.83-4.51); Absolute Neutrophil Count 5.8 X10^3/uL (2.0-7.7); Basophil# 0.05 X10^3/uL; Basophil% 0.6 % (0-1); Eosinophil# 0.38 X10^3/uL; Eosinophils% 4.4 % (0-5); Hematocrit 31.7 % (37-47); Hemoglobin 10.4 g/dL (12.0-15.0); Lymphocyte # 1.54 X10^3/ul (0.83-4.51); Lymphocyte % 17.7 % (19-41); Mean Corp Hgb Conc 32.8 g/dL (32-36); Mean Corpuscular Hgb 27.5 pg (27.0-32.0); Mean Corpuscular Volume 83.9 fL (81-99); Mean Platelet Vol. 8.5 fl (6.2-12.0); Monocyte% 9.2 % (0-10); NRBC Flagged by Analyzer 0 % (0-5); Neutrophil # 5.82 X10^3/uL (2.7-7.7); Neutrophil % 66.9 % (47-70); Platelet Count 286 K/mm3 (150-450); RBC Distribution Width SD 39.4 fl (35.1-43.9); Red Blood Count 3.78 M/mm3 (4.2-5.4); White Blood Count 8.7 K/mm3 (4.4-11.0)
[2024-08-21] MEDS: Ipratropium/Albuterol Sulfate 3 ML AMPUL.NEB INHALATION ×3 (06:55→19:46)
[2024-08-21 07:50] LABS: Anion Gap 5 (5-15); BUN 7 mg/dL (7-18); BUN/Creat Ratio 16.8 RATIO (10-20); Calcium,Total 8.9 mg/dL (8.5-10.1); Chloride 110 mmol/L (98-107); Creatinine, Serum 0.42 mg/dL (0.55-1.02); EST Glomerular Filtration Rate 163 mL/min (>60); Est Glom Filt Rate - Afr Amer 197 mL/min (>60); Estimated Creatinine Clearance 66.69 ml/min; Glucose 91 mg/dL (74-106); Potassium 3.8 mmol/L (3.5-5.1); Sodium Level 137 mmol/L (136-145)
[2024-08-21] MEDS: FLU VACCINE **HIGH DOSE** TV 24-25 180 MCG/0.5 ML SYRINGE IM (08:51)
[2024-08-21] MEDS: guaiFENesin 1,200 MG Tablet 1200 MG PO ×2 (08:52→20:31)
[2024-08-21] MEDS: predniSONE 20 MG Tablet 40 MG PO (08:52)
--- NOTE | 2024-08-21 08:56 | NURSING ---
resting pulse ox 96% p 88, walking SPO2 95% p 102.
--- NOTE | 2024-08-21 12:03 | PCM.PROGNOTE ---
Subjective Subjective Patient seen and examined. She had no complaints and felt well. She denied any cough, chest pain, palpitations, dizziness, nausea or any other symptoms. Review of systems is otherwise negative. Objective Data Objective Data Vital Signs: Vital Signs Temp Pulse Resp BP Pulse Ox O2 Del Method O2 Flow Rate 98 F 85 18 107/50 L 96 Room Air 2 08/21/24 08:42 08/21/24 08:42 08/21/24 08:42 08/21/24 08:42 08/21/24 08:42 08/21/24 08:47 08/20/24 23:45 Oxygen Flow Rate (L/min) 2 Oxygen Delivery Method Room Air Weight: 166 lb 7.184 oz Body Mass Index (BMI) 30.4 Intake & Output: Intake and Output for Last 24 Hours 08/19/24 08/20/24 08/21/24 23:59 23:59 23:59 Intake Total 630 / 630 520 / 520 400 / 400 Balance 630 / 630 520 / 520 400 / 400 Lab / Micro Data 08/21/24 06:30 08/21/24 06:30 Labs: Laboratory Results - last 24 hr 08/21/24 06:30: WBC 8.7, RBC 3.78 L, Hgb 10.4 L, Hct 31.7 L, MCV 83.9, MCH 27.5, MCHC 32.8, RDW Std Deviation 39.4, RDW Coeff of Leann 13.0, Plt Count 286, MPV 8.5, Immature Gran % (Auto) 1.200 H, Neut % (Auto) 66.9, Lymph % (Auto) 17.7 L, [place] % (Auto) 9.2, Eos % (Auto) 4.4, Baso % (Auto) 0.6, Absolute Neuts (auto) 5.8, Absolute Lymphs (auto) 1.54, Nucleated RBC % 0, Sodium 137, Potassium 3.8, Chloride 110 H, Carbon Dioxide 22.0, Anion Gap 5, BUN 7, Creatinine 0.42 L, Estim Creat Clear Calc 66.69, Est GFR (MDRD) Af Amer 197, Est GFR (MDRD) Non-Af 163, BUN/Creatinine Ratio 16.8, Glucose 91, Calcium 8.9 Micro: Microbiology 08/19/24 20:30 Mucosa - Nasopharyngeal Coronavirus COVID-19 PCR - Final SARS-CoV-2 (COVID 19 PCR) 08/19/24 20:48 Urine, Random Legionella Antigen - Final 08/19/24 20:48 Urine, Random Streptococcus pneumoniae Antigen (M - Final 08/19/24 15:34 Mucosa - Nose Respiratory Panel (PCR) - Final Physical Exam Const alert, oriented x3, no apparent distress and well nourished General Appearance: cooperative and well developed HEENT normocephalic, head/scalp atraumatic, moist oral mucous membranes, oropharynx normal and gingiva normal Eyes PERRL and EOMs intact bilaterally Neck no lymphadenopathy and supple Lymph Lymphatic: no lymphadenopathy noted and no lymphedema noted Resp Resp Narrative: mildly diminished breath sounds bilaterally, mild crackles bilaterally, no wheezing. On room air. Cardio regular rate, regular rhythm, S1 normal heart sound, S2 normal heart sound and no murmurs GI normal to inspection, nondistended, normoactive bowel sounds, soft to palpation, non-tender and non-distended Extremity normal capillary refill, no clubbing, cyanosis or edema and no calf tenderness General Extremity: no tenderness to palpation of joints or extremities Skin General Skin Exam: no breakdown Neuro CN's II-XII intact bilaterally, no focal motor deficits and no sensory deficits noted Motor Exam: strength 5/5 throughout and general weakness Psych thought process normal and cooperative Appearance: appropriate Assessment & Plan Assessment/Plan (1) Shortness of breath: (2) COVID: PLAN: Plan #Acute on chronic Hypersensitivity pneumonitis Patient admitted with a complaint of shortness of breath. She has been treated with pneumonia since around [place] and says she has had multiple oral antibiotics including Levaquin, Omnicef, doxycycline and amoxicillin and also received prednisone but has not improved. She went back on account of shortness of breath. CTA of the chest showed no evidence of PE but showed interstitial and groundglass opacities more prominent peripherally and centrally. When she came in she also tested positive for COVID. She says when her symptoms started June she was tested for COVID but was negative. COVID positive pulmonology reviewed patient yesterday and thinks patient has acute on chronic hypersensitivity pneumonitis as she has occupational exposure to dust and mold that improves when she is away from work. Pulmonology recommends exposure avoidance. Pulmonology also recommended patient to have extended prednisone and inhaled corticosteroid Patient had a mild fever of 99.9 Fahrenheit once overnight. She also apparently desaturated to 87% on room air yesterday at around 11:40 AM. Patient had a walking pulse ox today and was on room air at 97% and did not require any oxygen. Patient was amenable to discharge today but her daughter says she does not want the patient discharged because she claims that she was told by the mechanical assembly technician that patient should not leave the hospital till the medical team figured out what was going on with the patient and they had answers. I explained to the daughter that this is not was documented in the mechanical assembly technician note and also that her mother had told me that the mechanical assembly technician told her her symptoms were likely due to dust exposure which is what was documented in the patient's note by pulmonology. 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 I did explain to the daughter that in-house pulmonology would be here tomorrow so would be a good idea for her to be reviewed by pulmonology in person tomorrow to assuage her concerns further. Daughter is also demanding that her mother be discharged on oxygen. I explained to her that the patient did not qualify for oxygen with a walking pulse ox test. start patient on inhaled steroid and oral prednisone taper. #COVID 19 infection: asymptomatic. Stable #Seizure disorder: on trileptal #Depression and anxiety: on sertraline and oxcarbazepine. DVT prophylaxis; lovenox Disposition: for likely discharge over next 24-48 hours once pulmonology reviews patient in the hospital and patient and her daughter are comfortable with discharge. Charges/Coding Visit Charges Inpatient E&M: 06371 Subs Hosp L2
--- NOTE | 2024-08-21 12:59 | PCM.PN.TICU ---
Objective Data Objective Data Vital Signs: Vital Signs Last response Temperature 36.6 C 08/21/24 08:42 Temperature Source Oral 08/21/24 08:42 Pulse Rate 85 08/21/24 08:42 Respiratory Rate 18 08/21/24 08:42 Respiratory Effort Pursed Lip 08/21/24 08:47 Respiratory Depth Shallow 08/21/24 08:47 Respiratory Pattern Normal 08/21/24 08:47 Blood Pressure 107/50 L 08/21/24 08:42 Blood Pressure Mean 69 08/21/24 08:42 Blood Pressure Source Monitor 08/21/24 08:42 Blood Pressure Position Sitting 08/21/24 08:42 Blood Pressure Location Left Arm 08/21/24 08:42 Pulse Ox 96 08/21/24 08:42 Oxygen Delivery Method Room Air 08/21/24 08:47 Oxygen Flow Rate (L/min) 2 08/20/24 23:45 I&O: I&O Last 24 Hours 08/20/24 08/21/24 08/21/24 23:59 11:59 23:59 Intake Total 520 / 520 400 / 400 Balance 520 / 520 400 / 400 I&O: Total Stay 08/19/24 15:17 thru 08/21/24 06:50 Intake Total 1550 Balance 1550 Current Meds Ordered / Administered: Current meds ordered / Administered Generic Name Dose Route Start Last Admin Trade Name Jamieq PRN Reason Stop Dose Admin Acetaminophen 650 mg 08/19/24 19:45 08/21/24 04:55 Acetaminophen 325 Mg Tablet PO 650 mg Q6H PRN PRN Administration Pain 1-10 Or Fever >100.7 Albuterol Sulfate 2.5 mg 08/19/24 19:45 Albuterol 2.5 Mg/3 Ml Vial.Neb. INHALATION Q2H PRN PRN SOB &/OR WHEEZING Albuterol/Ipratropium 3 ml 08/19/24 19:45 08/21/24 12:54 Ipratropium/Albuterol Sulfate 3 Ml Ampul.Neb INHALATION 3 ml Q6HWA.RT CRIS Administration Enoxaparin Sodium 40 mg 08/20/24 10:00 08/21/24 08:53 Enoxaparin 40 Mg/0.4 Ml Syringe SC Not Given DAILY CRIS Guaifenesin 1,200 mg 08/19/24 22:00 08/21/24 08:52 Guaifenesin 1,200 Mg Tablet PO 1,200 mg BID CRIS Administration Sodium Chloride 100 mls @ 15 mls/hr 08/19/24 20:01 IV .Q6H40M PRN Saline Flush Ibuprofen 400 mg 08/20/24 22:10 Ibuprofen 400 Mg Tablet PO Q8H PRN PRN Pain 1-10 or Fever Melatonin 3 mg 08/19/24 19:45 Melatonin 3 Mg Tablet PO QHS PRN PRN INSOMNIA Ondansetron HCl 4 mg 08/19/24 19:45 Ondansetron 4 Mg/2 Ml Vial IV Q8H PRN PRN NAUSEA/VOMITING Oxcarbazepine 600 mg 08/20/24 18:00 08/20/24 16:53 Oxcarbazepine 600 Mg Tab.Er.24h PO 600 mg 1800 CRIS Administration Oxycodone HCl 2.5 mg 08/19/24 19:45 Oxycodone 5 Mg Tablet PO Q4H PRN PRN Pain Score 4-10 Prednisone 40 mg 08/21/24 08:00 08/21/24 08:52 Prednisone 20 Mg Tablet PO 40 mg BREAKFAST CRIS Administration Senna/Docusate Sodium 2 tablet 08/19/24 19:45 Senna/Docusate Sodium 1 Tablet PO BID PRN PRN Constipation Sertraline HCl 150 mg 08/19/24 22:00 08/20/24 20:42 Sertraline 50 Mg Tablet PO 150 mg QHS CRIS Administration Sodium Chloride 10 - 40 ml 08/19/24 20:01 08/20/24 20:38 0.9% Saline Lock 10 Ml Syringe IV 20 ml UD PRN Administration SALINE FLUSH Trazodone HCl 50 mg 08/19/24 22:00 08/20/24 20:41 Trazodone 50 Mg Tablet PO 50 mg QHS CRIS Administration Lab / Micro Data 08/21/24 06:30 08/21/24 06:30 Labs: Laboratory Results - last 24 hr 08/21/24 06:30: WBC 8.7, RBC 3.78 L, Hgb 10.4 L, Hct 31.7 L, MCV 83.9, MCH 27.5, MCHC 32.8, RDW Std Deviation 39.4, RDW Coeff of Leann 13.0, Plt Count 286, MPV 8.5, Immature Gran % (Auto) 1.200 H, Neut % (Auto) 66.9, Lymph % (Auto) 17.7 L, [place] % (Auto) 9.2, Eos % (Auto) 4.4, Baso % (Auto) 0.6, Absolute Neuts (auto) 5.8, Absolute Lymphs (auto) 1.54, Nucleated RBC % 0, Sodium 137, Potassium 3.8, Chloride 110 H, Carbon Dioxide 22.0, Anion Gap 5, BUN 7, Creatinine 0.42 L, Estim Creat Clear Calc 66.69, Est GFR (MDRD) Af Amer 197, Est GFR (MDRD) Non-Af 163, BUN/Creatinine Ratio 16.8, Glucose 91, Calcium 8.9 Assessment and Plan . Assessment and plan: Susected hypersensitivity pneumonitis - CT shows GGOs in the periphery , which could be COVID or HSP - patient has occupational exposure to dust/mold that improves when she is away from work - patient will need have exposure avoidance - will need extended prednisone of 0.5mg to 1 mg /kg/ day for 4-6 weeks - Needs follow up with outpatient pulm - patient needs 6 minute walk with pulse ox to see if she desaturates The entirety of this encounter was done via Telemedicine Physical Exam Const alert and oriented x3 General Appearance: cooperative and well developed HEENT normocephalic and head/scalp atraumatic Eyes PERRL and EOMs intact bilaterally Neck full ROM Lymph Lymphatic: no lymphadenopathy noted Resp normal respiratory effort Effort and Inspection: able to speak in complete sentences Auscultation: diminished lung sounds Cardio regular rate and regular rhythm GI normal to inspection, nondistended, normoactive bowel sounds Neuro oriented x3 and CN's II-XII intact bilaterally Psych cooperative Subjective Subjective KIANA REEVES, is a 64 F has a history of seizure disorder and depression who presents to the hospital on with a 6 week history of worsening cough with shortness of breath and multiple rounds of antibiotics for pneumonia. She has been on Omnicef, Doxy, amoxicillin, Levaquin and has also received prednisone with no improvement. Patient had CT scan August 14 and it showed bilateral lower lobe and right middle lobe groundglass infiltrates. Patient had CTA which showed no PE but redemonstrated interstitial and groundglass opacities more prominent peripherally than centrally. Patient reports that she has had different exposure which may have caused her issues. 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 She states she does not wear a mask. 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 She states she uses lysol , chlorox whips and toliet bowel cleaner carpet and upholstery 08/21 Patient able to walk in the room but did drop to 88 percents.
[2024-08-21] MEDS: OXCARBAZEPINE 600 MG PO (17:52)
[2024-08-21] MEDS: Sertraline 50 MG Tablet 150 MG PO (20:31)
[2024-08-21] MEDS: traZODone 50 MG Tablet PO (20:32)
[2024-08-22 02:15] VITALS: BP 103/60; PULSE 98; RESP 18; TEMP 36.6; O2SAT 93
[2024-08-22 07:20] LABS: Absolute Lymphocyte Count 2.01 X10^3/uL (0.83-4.51); Absolute Neutrophil Count 6.1 X10^3/uL (2.0-7.7); Basophil# 0.05 X10^3/uL; Basophil% 0.6 % (0-1); Eosinophil# 0.25 X10^3/uL; Eosinophils% 2.8 % (0-5); Hematocrit 32.9 % (37-47); Hemoglobin 10.6 g/dL (12.0-15.0); Lymphocyte # 2.01 X10^3/ul (0.83-4.51); Lymphocyte % 22.2 % (19-41); Mean Corp Hgb Conc 32.2 g/dL (32-36); Mean Corpuscular Hgb 27.7 pg (27.0-32.0); Mean Corpuscular Volume 86.1 fL (81-99); Mean Platelet Vol. 8.6 fl (6.2-12.0); Monocyte# 0.62 X10^3/uL; Monocyte% 6.8 % (0-10); NRBC Flagged by Analyzer 0 % (0-5); Neutrophil # 6.06 X10^3/uL (2.7-7.7); Neutrophil % 66.7 % (47-70); Platelet Count 309 K/mm3 (150-450); RBC Distribution Width CV 13.1 % (11.6-14.6); RBC Distribution Width SD 40.5 fl (35.1-43.9); Red Blood Count 3.82 M/mm3 (4.2-5.4); White Blood Count 9.1 K/mm3 (4.4-11.0)
[2024-08-22] MEDS: Ipratropium/Albuterol Sulfate 3 ML AMPUL.NEB INHALATION ×2 (07:36→13:45)
[2024-08-22 07:37] VITALS: PULSE 96; RESP 18; O2SAT 97
[2024-08-22 08:08] LABS: Anion Gap 6 (5-15); BUN 8 mg/dL (7-18); BUN/Creat Ratio 14.5 RATIO (10-20); Calcium,Total 9.1 mg/dL (8.5-10.1); Chloride 111 mmol/L (98-107); Creatinine, Serum 0.55 mg/dL (0.55-1.02); EST Glomerular Filtration Rate 118 mL/min (>60); Est Glom Filt Rate - Afr Amer 143 mL/min (>60); Estimated Creatinine Clearance 66.69 ml/min; Glucose 99 mg/dL (74-106); Potassium 3.5 mmol/L (3.5-5.1); Sodium Level 140 mmol/L (136-145)
[2024-08-22 08:15] VITALS: BP 101/59; PULSE 107; RESP 16; TEMP 36.7; O2SAT 96
[2024-08-22] MEDS: predniSONE 20 MG Tablet 40 MG PO (08:30)
[2024-08-22] MEDS: guaiFENesin 1,200 MG Tablet 1200 MG PO (08:30)
[2024-08-22] MEDS: Acetaminophen 325 MG Tablet 650 MG PO (08:30)
[2024-08-22 12:22] VITALS: O2SAT 94; O2SAT 96
--- NOTE | 2024-08-22 12:50 | PN.CC_ITS ---
Assessment & Plan Assessment/Plan (1) Shortness of breath: PLAN: Plan RECOMMENDATIONS: 1. Continue prednisone 40 mg daily x 5 days. 2. Check TRIP with reflex, rheumatoid factor, CCP antibodies and ANCA. 3. Recommend outpatient pulmonary follow-up within 2 weeks. 4. Perform walking oximetry study prior to consideration for discharge home. IMPRESSIONS: 1. Shortness of breath Appears secondary to COVID-19 pneumonia. The patient did have CT imaging of the chest which ruled out pulmonary embolism, but did demonstrate faint groundglass opacities. The patient was initially evaluated by pulmonary over the weekend, who voiced concerns for possible hypersensitivity pneumonitis. However, the findings noted on CT imaging could reflect nothing more than COVID-19. 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 She also reports the presence of fevers and generalized malaise when she goes to work. Strangely, however, the patient reported that she still experiences the symptoms when she is on prednisone as well, which calls into question a diagnosis of hypersensitivity pneumonitis. At this time, would recommend that we check an autoimmune panel. It would be reasonable for her to continue 5 days of prednisone 40 mg daily for COVID-19. Recommend ambulatory oximetry study prior to consideration for discharge home. At her pulmonary follow-up office visit, I would recommend that PFTs be ordered along with a hypersensitivity pneumonitis panel. The results of her autoimmune workup should be available by that time. In addition, she has symptoms concerning for underlying sleep apnea, for which a diagnostic polysomnogram can be completed. She is currently maintaining appropriate oxygen saturations on room air. Lastly, it would be reasonable to obtain peak flow measurements at rest and have the patient repeat them while at work, should she be experiencing a component of occupational asthma. Nevertheless, the patient reported to me that she has been treated with inhaled corticosteroids in the past and has never received any symptom relief. This note was generated with [employer] dictation software. It may contain incorrect words, spelling, and punctuation that were not noted in checking the note before signing. Subjective Subjective The patient was seen and examined at the bedside this morning. Events from the last 24 hours have been reviewed. The patient is currently afebrile, hemodynamically stable and maintaining appropriate oxygen saturations on room air. White blood cell count is normal. Hemoglobin and platelet count are stable. Chemistry profile was unremarkable. The patient seems frustrated this morning, indicating that she still feels relatively unwell. She indicated that every time she goes to work she develops generalized malaise and a fever. She has never been away from work for longer than 24 hours. Her family is concerned about periodic oxygen desaturations at nighttime. The patient does report the presence of audible snoring along with daytime hypersomnolence and napping. She has never been evaluated for any autoimmune conditions. Objective Data Objective Data The patient's most recent lab work, culture data and imaging studies have all been personally reviewed. COVID PCR was positive on August 19. Vital Signs: Vital Signs Temp Pulse Resp BP Pulse Ox O2 Del Method O2 Flow Rate 98.1 F 107 H 16 101/59 L 96 Room Air 2 08/22/24 08:15 08/22/24 08:15 08/22/24 08:15 08/22/24 08:15 08/22/24 08:15 08/22/24 08:19 08/22/24 02:15 Oxygen Flow Rate (L/min) 2 Oxygen Delivery Method Room Air Weight: 166 lb 7.184 oz Body Mass Index (BMI) 30.4 Intake & Output: Intake and Output for Last 24 Hours 08/20/24 08/21/24 08/22/24 23:59 23:59 23:59 Intake Total 520 / 520 400 / 650 730 / 730 Balance 520 / 520 400 / 650 730 / 730 Lab / Micro Data Attestation: I reviewed the patient's lab results. 08/22/24 07:03 08/22/24 07:03 Labs: Laboratory Results - last 24 hr 08/22/24 07:03: WBC 9.1, RBC 3.82 L, Hgb 10.6 L, Hct 32.9 L, MCV 86.1, MCH 27.7, MCHC 32.2, RDW Std Deviation 40.5, RDW Coeff of Leann 13.1, Plt Count 309, MPV 8.6, Immature Gran % (Auto) 0.900, Neut % (Auto) 66.7, Lymph % (Auto) 22.2, [place] % (Auto) 6.8, Eos % (Auto) 2.8, Baso % (Auto) 0.6, Absolute Neuts (auto) 6.1, Absolute Lymphs (auto) 2.01, Nucleated RBC % 0, Sodium 140, Potassium 3.5, C hloride 111 H, Carbon Dioxide 23.0, Anion Gap 6, BUN 8, Creatinine 0.55, Estim Creat Clear Calc 66.69, Est GFR (MDRD) Af Amer 143, Est GFR (MDRD) Non-Af 118, BUN/Creatinine Ratio 14.5, Glucose 99, Calcium 9.1 Micro: Microbiology 08/20/24 00:13 Blood Culture (Wb) - Left Hand Blood Culture - Preliminary No growth in 48 hours. 08/19/24 20:24 Blood Culture (Wb) - Right Wrist Blood Culture - Preliminary No growth in 48 hours. 08/19/24 20:30 Mucosa - Nasopharyngeal Coronavirus COVID-19 PCR - Final SARS-CoV-2 (COVID 19 PCR) 08/19/24 20:48 Urine, Random Legionella Antigen - Final 08/19/24 20:48 Urine, Random Streptococcus pneumoniae Antigen (M - Final 08/19/24 15:34 Mucosa - Nose Respiratory Panel (PCR) - Final Physical Exam Const alert and no apparent distress General Appearance: cooperative HEENT normocephalic, head/scalp atraumatic and moist oral mucous membranes Eyes PERRL, EOMs intact bilaterally and conjunctivae normal Neck supple General: trachea midline Chest inspection of chest normal Resp normal respiratory effort Auscultation: Negative for rales, rhonchi or wheezes Cardio regular rate and regular rhythm GI normal to inspection, nondistended, normoactive bowel sounds Extremity no clubbing, cyanosis or edema Skin no rashes or lesions noted Neuro CN's II-XII intact bilaterally, moves all extremities and no focal motor deficits Charges/Coding Visit Charges Inpatient E&M: 17554 Subs Hosp L2
--- NOTE | 2024-08-22 13:43 | CASEMGMT ---
EVIN LAWSON notified by hospitalist that pt may want to self pay for oxygen although does not qualify. EVIN LAWSON into pt room, pt sitting up in bed with respiratory at bedside ready to receive a breathing treatment. Discussed with pt home oxygen. Pt declines this stating if she doesn't need it, she isn't going to mess with it. Pt denies any homegoing needs at this time. Pt did ask for covid tests, she is aware these can be obtained at a drugstore.
--- NOTE | 2024-08-22 13:43 | PCM.DC ---
Discharge Instructions Diet Discharge Diet: No restrictions DC O2, CPAP, BIPAP needs RN Home O2 Qualification: Home O2 Qualification: Is the patient on home oxygen No 08/22/24 12:22 Home O2 Qualification: AT REST 1- Pulse Ox at rest 96 08/22/24 12:22 Home O2 Qualification: WITH AMBULATION 1- Pulse Ox with ambulation 94 08/22/24 12:22 1- Oxygen Flow Rate with 0 08/22/24 12:22 ambulation Home O2 Discharge instructions: No Dressing / Incision Discharge Activity: Return to Normal Activity Return to work on:: 08/27/24 Weight Bearing Status: Full weight bearing Follow Up Care Test Results: Test results from this visit will be discussed in further detail at your follow-up appointment, if applicable. Discharge Plan Admission Admit Date/Time: 08/19/24 18:57 Primary Reason for Your Visit: COVID, dyspnea Attending Provider: Rebel Mcelroy Primary Care Provider: Michelle Recinos Consulting Providers: Audrey Colvin; Javier Kennedy; Alexander Almonte; Christiano Evans; Fahad Garcia; Angel Denise; Rivas Major; Duncan Mcnair; Jada Castelan; Dane Mcgarry; Joseluis Isidro; William Bull; Ingrid Gaines; Ambreen Rust; Andrei Zurita; Rick Balbuena; Josh Baum; Brett Copeland; Radhika Lockwood; Jose Enrique Oconnell; Eliot Arceo; Cornelius Gresham; Carlos Hoang; Justice Davidson; Beatriz Peguero NP; Lor Aldridge; Taylor Atkins Instructions Forms: Work / School Excuse Discharge Orders/Prescriptions Prescriptions: New prednisone 20 mg Tablet 40 mg PO BREAKFAST Qty: 10 0RF ipratropium-albuterol 0.5 mg-3 mg(2.5 mg base)/3 mL solution for nebulization 3 ml inhalation Q6H PRN (Reason: shortness of breath) Qty: 180 0RF Continued budesonide-formoterol [Breyna] 80-4.5 mcg/actuation HFA aerosol inhaler 2 puff INHALATION BID oxcarbazepine 600 mg tablet extended release 24 hr 600 mg PO 1800 trazodone 50 mg tablet 50 mg PO QHS sertraline 100 mg tablet 150 mg PO QHS Referrals / Follow Up: Fahad Garcia DO [Med Staff - Active Staff] - See Referral Note (in two weeks) Michelle Recinos PA [Primary Care Provider] - See Referral Note (in two-three weeks) Disposition Disposition (needs filled in before D/C Order can be placed): Home, Self Care
[2024-08-22 13:46] VITALS: PULSE 94; RESP 18
--- NOTE | 2024-08-22 14:12 | PCM.DC.SUM ---
Providers Date of Admission: 08/19/24 Date of Discharge: 08/22/24 Primary Care Physician: DENNY Torres Consultations 08/19/24 19:45 Consult: Senior Network Engineer / Pulmonary Medicine Routine Consulting Provider: [facility] Reason for Consult: SOB w/ ground glass opacities, refractory to abx EMERGENT Consult: No MD Notified: Yes Date Notified: 08/20/24 Time Notified: 08:50 Method of Notification: Answering Service Comments:: tele neuro covering. notified. ConnectID: [id number] Reason For Visit: REFRACTORY SOB & GROUND GLASS OPACITIES Diagnosis Discharge Diagnosis (1) Shortness of breath: Status: Acute Code(s): R06.02 - Shortness of breath Plan 1. COVID-19 infection #2 dyspnea-etiology unclear #3 seizure disorder #4 chronic depression Medications at Discharge Home Medications budesonide-formoterol HFA 80 mcg-4.5 mcg/actuation aerosol inhaler (Breyna) 2 puff inhalation BID BREATHING 08/19/24 oxcarbazepine 600 mg tablet,extended release 24 hr 600 mg PO 1800 EPILEPSY 08/19/24 sertraline 100 mg tablet 150 mg PO QHS DEPRESSION 08/19/24 trazodone 50 mg tablet 50 mg PO QHS 08/19/24 ipratropium 0.5 mg-albuterol 3 mg (2.5 mg base)/3 mL nebulization soln 3 ml inhalation Q6H PRN shortness of breath #180 mL 08/22/24 prednisone 20 mg tablet 40 mg (2 x 20 mg) PO BREAKFAST #10 tabs 08/22/24 Hospital Course Operations None Procedures None Summary of Care Provided Minutes Spent on Discharge: 31 Hospital Course: This 64-year-old white female was seen in the emergency room at [facility] with complaints of shortness of breath which had persisted over several weeks despite multiple rounds of antibiotics for suspected pneumonia. She had also been prescribed prednisone as an outpatient with no improvement in the dyspnea. Patient stated her symptoms started around the middle of June 2024. Patient contacted her PCP and was told to go to the emergency room for evaluation. Workup in the emergency room showed a normal white blood cell count, CTA was performed of the chest which showed no PE but showed interstitial and groundglass opacities more prominent peripherally then centrally. Patient was not hypoxic on room air. Patient was admitted to [place] [id number], respiratory panel was performed which was positive for COVID-19. Patient initially had been placed on Rocephin and Zithromax but this was stopped when her COVID-19 test was positive. Patient was seen in consultation by telemetry pulmonology who recommended a several week course of high-dose prednisone, on 08/22/2024, Dr. Garcia (pulmonary medicine) saw the patient and did not agree that it was necessary to treat the patient with high-dose corticosteroids over several weeks and recommended instead that the patient have additional lab test drawn and follow-up as an outpatient at his office. Patient was ambulated prior to discharge and did not require any oxygen. Patient requested a prescription for DuoNeb aerosol solution because she had an aerosol nebulizer at home from her father. On 08/22/2024, patient was seen and examined: On examination she appeared in good health and spirits, she does not appear to be in any distress. Vital signs as documented. Skin warm and dry and without overt rashes. Neck without JVD, thyroid appears normal, trachea is midline, neck is supple. Lungs clear, normal air movement was noted. Heart exam notable for regular rhythm, normal sounds and absence of murmurs, rubs or gallops. Abdomen unremarkable and without evidence of organomegaly, masses, or abdominal aortic enlargement, bowel sounds are present in all 4 quadrants, no abdominal tenderness was noted. Extremities nonedematous, no cyanosis was noted, no clubbing was noted. Neuro: Cranial nerves II through XII are grossly intact, no focal motor deficits were noted, sensation to light touch and pinprick is intact, motor exam 5/5 throughout. Psych: Patient is alert and oriented x3, she does not appear anxious or depressed, she does not appear agitated. I offered to give the patient a prescription for oxygen at the time of discharge even though insurance would not pay for it, she declined it and stated that if it was not necessary based on her pulse ox readings she would not want the oxygen. Patient appears stable for discharge home on 08/22/2024. Weight / BMI Weight Weight: 75.5 kg Body Mass Index (BMI) 30.4 ABG / Lab / Microbiology Data 08/22/24 07:03 08/22/24 07:03 Laboratory: Laboratory Results - last 24 hr 08/22/24 07:03: WBC 9.1, RBC 3.82 L, Hgb 10.6 L, Hct 32.9 L, MCV 86.1, MCH 27.7, MCHC 32.2, RDW Std Deviation 40.5, RDW Coeff of Leann 13.1, Plt Count 309, MPV 8.6, Immature Gran % (Auto) 0.900, Neut % (Auto) 66.7, Lymph % (Auto) 22.2, [place] % (Auto) 6.8, Eos % (Auto) 2.8, Baso % (Auto) 0.6, Absolute Neuts (auto) 6.1, Absolute Lymphs (auto) 2.01, Nucleated RBC % 0, Sodium 140, Potassium 3.5, Chloride 111 H, Carbon Dioxide 23.0, Anion Gap 6, BUN 8, Creatinine 0.55, Estim Creat Clear Calc 66.69, Est GFR (MDRD) Af Amer 143, Est GFR (MDRD) Non-Af 118, BUN/Creatinine Ratio 14.5, Glucose 99, Calcium 9.1 08/22/24 14:00: Rheumatoid Factor < 10.0, ELOISE-1 Antibody TNP, SS-A/Ro IgG Antibody TNP, SS-B/La IgG Antibody TNP, Sm ([place]) Antibody TNP, FARM REPORTER Antibody TNP, Scl-70 Scleroderma Ab TNP, Double Strand DNA Ab TNP, Antichromatin Antibodies TNP, Centromere B Antibody TNP Microbiology: Microbiology 08/20/24 00:13 Blood Culture (Wb) - Left Hand Blood Culture - Preliminary No growth in 48 hours. 08/19/24 20:24 Blood Culture (Wb) - Right Wrist Blood Culture - Preliminary No growth in 48 hours. 08/19/24 20:30 Mucosa - Nasopharyngeal Coronavirus COVID-19 PCR - Final SARS-CoV-2 (COVID 19 PCR) 08/19/24 20:48 Urine, Random Legionella Antigen - Final 08/19/24 20:48 Urine, Random Streptococcus pneumoniae Antigen (M - Final 08/19/24 15:34 Mucosa - Nose Respiratory Panel (PCR) - Final D/C Instructions Discharge Diet: No restrictions Return to work on: 08/27/24 Weight Bearing Status: Full weight bearing DC O2, CPAP, BIPAP Needs RN Home O2 Qualification: Home O2 Qualification: Is the patient on home oxygen No 08/22/24 12:22 Home O2 Qualification: AT REST 1- Pulse Ox at rest 96 08/22/24 12:22 Home O2 Qualification: WITH AMBULATION 1- Pulse Ox with ambulation 94 08/22/24 12:22 1- Oxygen Flow Rate with 0 08/22/24 12:22 ambulation Home O2 Discharge instructions: No Meaningful Use Info Meaningful Use Meaningful Use Diagnoses (Choose all that apply): None applicable Ischemic Stroke Statin Dosing Therapy Reference: STATIN DOSE THERAPY REFERENCE: * Patients > 75 years receive moderate or high dose statin therapy. * Patients 75 years or YOUNGER should receive HIGH intensity statin dose unless contraindicated. You will be required to document reason for non-treatment if statin daily dose does not meet guidelines. HIGH DOSE STATIN THERAPY DAILY Atorvastatin > than or = to 40 mg Rosuvastatin > than or = to 20 mg Amlodipine + Atorvastatin > than or = to 2.5/40 mg Ezetimibe + Simvastatin 10/80 mg Simvastatin 80mg Discharge Plan Admission Admit Date/Time: 08/19/24 18:57 Primary Reason for Your Visit: COVID, dyspnea Attending Provider: Rebel Mcelroy Primary Care Provider: Michelle Recinos Consulting Providers: Audrey Colvin; Javier Kennedy; Alexander Almonte; Christiano Evans; Fahad Garcia; Angel Denise; Rivas Major; Duncan Mcnair; Jada Castelan; Dane Mcgarry; Joseluis Isidro; William Bull; Ingrid Gaines; Ambreen Rust; Yudith,Andrei; Sree,Rick; Bautista,Josh; Dinorah,Brett; Radhika Lockwood; Jose Enrique Oconnell; Eliot Arceo; Cornelius Gresham; Carols Hoang; Justice Davidson; Beatriz Peguero NP; Lor Aldridge; Taylor Atkins Instructions Forms: Work / School Excuse Discharge Orders/Prescriptions Prescriptions: New prednisone 20 mg Tablet 40 mg PO BREAKFAST Qty: 10 0RF ipratropium-albuterol 0.5 mg-3 mg(2.5 mg base)/3 mL solution for nebulization 3 ml inhalation Q6H PRN (Reason: shortness of breath) Qty: 180 0RF Continued budesonide-formoterol [Breyna] 80-4.5 mcg/actuation HFA aerosol inhaler 2 puff INHALATION BID oxcarbazepine 600 mg tablet extended release 24 hr 600 mg PO 1800 trazodone 50 mg tablet 50 mg PO QHS sertraline 100 mg tablet 150 mg PO QHS Referrals / Follow Up: Fahad Garcia DO [Med Staff - Active Staff] - See Referral Note (in two weeks) Michelle Recinos PA [Primary Care Provider] - See Referral Note (in two-three weeks) Disposition Disposition (needs filled in before D/C Order can be placed): Home, Self Care Charges/Coding Visit Charges Inpatient E&M: 87343 Disch Hosp >30min
[2024-08-22 14:34] LABS: Rheumatoid Factor < 10.0 IU/mL (<15)
[2024-08-22 15:03] VITALS: BP 122/53; PULSE 99; RESP 18; TEMP 36.8; O2SAT 94
--- NOTE | 2024-08-22 15:54 | PHA.DC.MR.R ---
Pharmacy [facility] Med Reconciliation Pharmacy Service has performed discharge medication reconciliation for this patient. Attempted to delinquency counselor via telephone, pt did not answer. Medications reviewed. The patient's discharge medication list was reviewed for discrepancies and discrepancies were resolved. Medications at Discharge Home Medications budesonide-formoterol HFA 80 mcg-4.5 mcg/actuation aerosol inhaler (Breyna) 2 puff inhalation BID BREATHING 08/19/24 oxcarbazepine 600 mg tablet,extended release 24 hr 600 mg PO 1800 EPILEPSY 08/19/24 sertraline 100 mg tablet 150 mg PO QHS DEPRESSION 08/19/24 trazodone 50 mg tablet 50 mg PO QHS 08/19/24 ipratropium 0.5 mg-albuterol 3 mg (2.5 mg base)/3 mL nebulization soln 3 ml inhalation Q6H PRN shortness of breath #180 mL 08/22/24 prednisone 20 mg tablet 40 mg (2 x 20 mg) PO BREAKFAST #10 tabs 08/22/24
[2024-08-24 14:08] LABS: ANTINUCLEAR ANTIBODIES DIRECT Negative (Negative)
[2024-08-25 08:10] LABS: CCP IgG Antibodies 16 units (0-19); Cytoplasmic Ab (C-ANCA) <1:20 titer (Neg:<1:20); Perinuclear Ab (P-ANCA) <1:20 titer (Neg:<1:20)
== END 2024-08-22 15:34 | disposition home or self-care (01) | DRG 196 ==
LOC: ED 18:16 → MS3 19:31
PROVIDERS: Student in an Organized Health Care Education/Training Program; Admitting Provider Internal Medicine; Emergency Provider Emergency Medicine; PCP Physician Assistant; Visit Provider Internal Medicine
DX: J67.9 Hypersensitivity pneumonitis due to unspecified organic dust (principal); U07.1 COVID-19; G40.909 Epilepsy, unspecified, not intractable, without status epilepticus; F32.A Depression, unspecified; F41.9 Anxiety disorder, unspecified; R00.1 Bradycardia, unspecified; Z79.2 Long term (current) use of antibiotics; R91.8 Other nonspecific abnormal finding of lung field; Z57.2 Occupational exposure to dust; Z87.891 Personal history of nicotine dependence; Z79.51 Long term (current) use of inhaled steroids; Z88.8 Allergy status to other drugs, medicaments and biological substances; Z88.2 Allergy status to sulfonamides; Z95.0 Presence of cardiac pacemaker; R06.00 Dyspnea, unspecified
CPT/HCPCS: 36415; 71275; 80048; 84145; 84443; 84484; 85025; 85652; 86037; 86038; 86140; 86200; 86431; 87040; 87449; 87633; 87635; 90662; 94640; 94668; 94760; 94762; 99284; Q9967; A4216; J0696

== ENCOUNTER 2024-10-12 09:58 | Outpatient (CLI) | payer BC, SELFPAY | END 2024-10-12 23:59 | disposition home or self-care (01) | LOC: PAVLAB 09:58 | PROVIDERS: PCP Physician Assistant; Referring Provider Nurse Practitioner Family; Visit Provider Nurse Practitioner Family | DX: R06.02 Shortness of breath (principal) | CPT/HCPCS: 36415 ==

== ENCOUNTER → 2024-12-15 | Outpatient (CLI) | payer BC, SELFPAY | END | disposition home or self-care (01) | LOC: PSN 08:54 → SL 08:55 | PROVIDERS: PCP Physician Assistant; Referring Provider Nurse Practitioner Family; Visit Provider Nurse Practitioner Family | DX: R06.02 Shortness of breath (principal); G47.10 Hypersomnia, unspecified | CPT/HCPCS: 94060; 94726; 94729; 95806 ==

== ENCOUNTER → 2025-02-24 | Outpatient (CLI) | payer BC, SELFPAY | END | disposition home or self-care (01) | LOC: LAB 10:56 | PROVIDERS: PCP Physician Assistant; Referring Provider Nurse Practitioner Family; Visit Provider Nurse Practitioner Family | DX: J67.9 Hypersensitivity pneumonitis due to unspecified organic dust (principal) | CPT/HCPCS: 36415 ==